=== PATIENT | male | born 1985 | race Caucasian/White ===

== ENCOUNTER 2022-07-27 05:40 | Emergency (ER) | payer MEDICAID ==
[2022-07-27] MEDS ORDERED: Ketorolac 30 MG/ML SDV IM ONE (05:48)
[2022-07-27] MEDS ORDERED: Methocarbamol 500 MG Tab PO ONE (05:48)
[2022-07-27] MEDS ORDERED: Gabapentin 300 MG Cap PO ONE (06:57)
[2022-07-27] MEDS ORDERED: HYDROmorphone 1 MG/ML Syringe IM ONE (08:14)
== END 2022-07-27 09:35 | disposition home or self-care (01) ==
LOC: JP.ED 05:40
DX: M48.061 Spinal stenosis, lumbar region without neurogenic claudication (principal); M47.26 Other spondylosis with radiculopathy, lumbar region
CPT/HCPCS: 96372; 99283; A9270; J1170; J1885

== ENCOUNTER 2022-12-31 10:03 | Emergency (ER) | payer SELFPAY ==
[2022-12-31 10:47] LABS: HEMATOCRIT 41.6 % (38.4-49.7); HEMOGLOBIN 14.4 g/dL (12.9-16.9); MEAN CORPUSCULAR HEMOGLOBIN 31.5 pg (31.6-35.5); MEAN CORPUSCULAR HGB CONC 34.6 g/dL (31.6-35.5); RED BLOOD CELL COUNT 4.57 M/uL (4.14-5.76); WHITE BLOOD CELL COUNT,WBC 9.6 K/uL (3.2-11.0)
[2022-12-31] MEDS: Ondansetron 4 MG/2 ML SDV IVPUSH ONE (10:49)
[2022-12-31] MEDS: Sodium Chloride 0.9% 1,000 ML IV ONE (10:49)
[2022-12-31] MEDS: HYDROmorphone 0.5 MG/0.5 ML Syringe IVPUSH ONE ×2 (10:49→11:53)
[2022-12-31 11:20] LABS: A/G RATIO 1.5 (1.2-2.2); ALANINE AMINOTRANSFERASE,ALT 43 U/L (12-78); ALBUMIN 3.8 g/dL (3.4-5.0); ALKALINE PHOSPHATASE 78 U/L (46-116); ANION GAP 6.8 mmol/L (5.0-14.0); ASPARTATE AMNIOTRANSFERASE,AST 42 U/L (15-37); BILIRUBIN TOTAL 1.3 mg/dL (0.2-1.0); BLOOD UREA NITROGEN,BUN 16 mg/dL (7-18); CALCIUM 8.6 mg/dL (8.5-10.1); CARBON DIOXIDE,CO2 29 mmol/L (21-32); CHLORIDE,CL 104 mmol/L (100-108); CREATININE 1.3 mg/dL (0.8-1.3); ESTIMATED GFR 72 mL/min (>60); GLUCOSE RANDOM 92 mg/dL (74-106); POTASSIUM,K 3.9 mmol/L (3.6-5.2); PROTEIN TOTAL,TP 6.3 g/dL (6.4-8.2); SODIUM,NA 140 mmol/L (140-148)
[2022-12-31] MEDS: Sodium Chloride 0.9% 50 ML IV SCH (11:31)
[2022-12-31] MEDS: Sodium Chloride 0.9% 10 ML Syringe FLUSH ONE (11:31)
[2022-12-31] MEDS: Iopamidol 612 MG/ML 500 ML Multipack Bottle IV ONE (11:31)
== END 2022-12-31 13:47 | disposition home or self-care (01) ==
LOC: JP.ED 10:03
DX: S20.229A Contusion of unspecified back wall of thorax, initial encounter (principal); Z86.16 Personal history of COVID-19; Z72.0 Tobacco use; F17.210 Nicotine dependence, cigarettes, uncomplicated; W11.XXXA Fall on and from ladder, initial encounter
CPT/HCPCS: 36415; 72128; 72128-26; 74177; 74177-26; 76377; 80053; 83605; 85027; 96374; 96375; 96376; 99284; 99284-25; J1170; J2405; J3360; J3490; J7030; Q9967